=== PATIENT | male | born 1950 | race Caucasian/White ===

== ENCOUNTER → 2022-10-22 09:22 | Outpatient (BNVA) | payer MEDICARE, OTHER, SELFPAY | PROVIDERS: PCP Nurse Practitioner Family; Visit Provider Psychiatry & Neurology Neurology | DX: D32.9 Benign neoplasm of meninges, unspecified (principal); C61 Malignant neoplasm of prostate; I10 Essential (primary) hypertension; F98.8 Other specified behavioral and emotional disorders with onset usually occurring in childhood and adolescence; Z96.651 Presence of right artificial knee joint | CPT/HCPCS: 99203 ==

== ENCOUNTER 2022-11-15 07:51 | Outpatient (CLI) | payer OTHER, MEDICARE, SELFPAY ==
--- NOTE | 2022-11-15 08:00 | MR_ITS ---
WS: [id number] MRI BRAIN WITH AND WITHOUT CONTRAST HISTORY: D32.9 - Benign neoplasm of meninges, unspecified COMPARISON: 04/03/2021, 09/23/2019 TECHNIQUE: Multiplanar imaging performed through the brain with MultiHance 20 ml's IV. No acute infarcts are seen. Hadley-white matter differentiation is well preserved. Mild scattered bilat eral small vessel ischemic changes. Small vessel disease is predominantly in a periventricular distri bution but also subcortical. Very similar to the prior study of 04/03/2021. No obvious progression in no prior infarct. No susceptibility artifacts or prior lacunar infarcts. Ventricles are moderately enlarged. Lateral ventricles are prominent but similar to the prior study. Clivus and pituitary gland are normal. Visualized posterior fossa and brainstem are also normal. Homogeneously and intensely enhancing extra-axial mass is noted along the RIGHT chelsie clival region. This mass has been previously described. This is most consistent with a benign meningioma. Mass measu res 14 mm anterior posterior, 8 mm transverse , 13 mm superior-inferior. Very similar in size as comp ared to the prior studies. There is very slight abutment of bowel in the brennen but no displacement. No additional areas of abnormal enhancement or mass. Tortuous vertebrobasilar artery. No occlusions. Filling defects within the dural venous sinuses near the torcula are consistent with arachnoid granul ations. Paranasal sinuses: Well aerated with no significant disease. Mastoid air cells: Normal. Calvarium and scalp: Normal. IMPRESSION: 1. Stable RIGHT chelsie clival meningioma since 09/23/2019. Meningioma measures 14 x 8 x 13 mm. Very sl ight abutment upon the RIGHT brennen but no displacement. 2. No additional areas of abnormal enhancement. 3. Mild ventriculomegaly. Similar to the prior study. May be on the basis of central atrophy. Compon ent of normal pressure hydrocephalus should be considered. 4. Mild small vessel ischemic disease is stable since 2021. No acute infarct.
[2022-11-15] MEDS: gadobenate dimeglumine 20 mL vial IV (08:55)
== END 2022-11-15 07:52 | disposition home or self-care (01) ==
PROVIDERS: PCP Nurse Practitioner Family; Visit Provider Specialist
DX: D32.0 Benign neoplasm of cerebral meninges (principal); G93.89 Other specified disorders of brain; I67.89 Other cerebrovascular disease
CPT/HCPCS: 70553; A9577